=== PATIENT | male | born 2000 | race Caucasian/White ===

== ENCOUNTER 2024-01-30 10:25 | Emergency (ER) | payer OTHER, SELFPAY ==
[2024-01-30 10:28] VITALS: BP 125/83
[2024-01-30 10:58] VITALS: BMI 28.4
--- NOTE | 2024-01-30 11:32 | ED.GENMED ---
History of Present Illness
General
Chief Complaint: Chest Pain
Source: patient
Exam Limitations: none
Time Seen by Provider: 01/30/24 10:57
Nursing documentation reviewed up to this point in time: agreed with
History of Present Illness
History of Present Illness:
23 yo male w h/o Anxiety/depression on Effexor 150 + 37.5 mg presents stating he was sitting at work, just got a promotion at his back 2 weeks ago, and suddenly felt chest tightness, felt 'overwhelmed.' No associated symptoms such as sweating,
dizziness, weakness, radiation of pain, SOB.
Past History
Past History
ED Past Medical History: Psychiatric (anxiety/depression)
ED Past Surgical History: None
Review of Systems
Review of Systems
Allergies reviewed?: Yes
All Other Systems: ROS reviewed and negative except as documented in HPI and ROS
Cardiac: Reports chest pain; Denies diaphoresis or palpitations
ABD/GI: Denies abdominal pain or nausea
Neurological: Reports no symptoms
Psychiatric: Reports depression (over breakup) and anxiety (over new job position)
Phy Exam
Physical Exam
Physical Exam:
GENERAL: No acute distress. A&Ox3.
CONSTITUTIONAL: Afebrile.
EYES: clear, tearful
RESPIRATORY: Regular respirations, nonlabored, lungs clear.
CARDIOVASCULAR: Regular rate and rhythm, no murmurs, no rubs.
GI: Soft, nontender
MUSCULOSKELETAL: Moves with ease. Well perfused.
SKIN: Warm, dry, pink
PSYCH: Depressed, tearful mood and affect. Well kept, interactive and appropriate
NEUROLOGIC: Awake, alert and oriented. No focal neurological deficits
Scores
Heart Score for Chest Pain Patients
STEMI patient?: Not applicable
Course
Orders/Labs/Results
Orders:
Orders
01/30/24 10:25
EKG [Electrocardiogram (*1)] Urgent
Reason for Study: Chest Pain
01/30/24 10:26
EKG- Treatment ONCE
Vital Signs
Initial and Last Documented VS:
Initial Vital Signs
Temp Pulse Resp BP Pulse Ox
99 F 83 18 125/83 98
01/30/24 10:28 01/30/24 10:28 01/30/24 10:28 01/30/24 10:28 01/30/24 10:28
Last Documented Vital Signs
Temp Pulse Resp BP Pulse Ox
99 F 87 21 102/73 97
01/30/24 10:28 01/30/24 12:00 01/30/24 12:00 01/30/24 12:00 01/30/24 11:45
MDM/Problems Addressed
Differential Diagnosis Includes:
Anxiety, panic attack, depression
MDM/Problems Addressed:
23 yo male w h/o Anxiety/depression on Effexor 150 + 37.5 mg presents stating he was sitting at work, just got a promotion at his back 2 weeks ago, and suddenly felt chest tightness, felt 'overwhelmed.' No associated symptoms such as sweating,
dizziness, weakness, radiation of pain, SOB.
In further discussion he tells me his girlfriend of 3 years broke up with him 1.5 months ago and 'my whole world changed.' Tearful. Admits to hx of anxiety but 'never this much.'
States has strong social support (parents, friends)
Mom arrives and they hug and he cries.
Plan: Give note for 2 days off work.
EKG normal.
No indication for lab work.
Feeling 'a little' better.
Pt admits he feels suicidal, does not have a plan.
Case discussed with Darrel in Crisis and pt sent to Crisis for evaluation.
Mom is attempting to contact pt's Psychiatrist
*EKG
EKG Intrepretation Date: 01/30/24
EKG Intrepretation Time: 11:32
Interpretation: normal
Comparison EKG: no comparison EKG present
Rate: normal
Rhythm: sinus
Williams: normal axis
Interval: normal interval
QRS Pattern: normal QRS
Ischemia: no ischemia
*Critical Care Note
Total Time (30-74mins, 75-104mins- exclusive of procedures): Not Applicable
ED Attending Note
-
Portions of this chart may have been created with voice recognition software.� Occasional wrong word or��sound alike� substitutions may have occurred due to the inherent limitations of voice recognition software.
Discharge Plan
Departure
Patient Disposition: Home (Routine Discharge)
Date of Disposition: 01/30/24
Time of Disposition: 11:47
Patient with high blood pressure during this ER visit?: No
Condition: Fair
Discharge Problem:
Depression, Stress at work, Atypical chest pain
Instructions: Chest Pain That Is Not Caused by the Heart (DC), Tips for How to Help Your Mood, Stress, Depression, Adult ED
Referrals:
Cristian Churchill MD [Family Provider] - As needed
Stand Alone Forms: Return to Work
Activity Restrictions/Additional Instructions:
As we discussed, your EKG is normal.
Take it easy the next 2 days. Return to work on 02/01.
Interventions
Interventions:
*Risk Screen - Suicide Last Done: 01/30/24 10:28
*Neglect/Abuse Screening Last Done: 01/30/24 10:28
*ED COVID-19 Vaccine History Last Done: 01/30/24 10:28
*Nursing Disposition Last Done: 01/30/24 12:26
ED- Cardiac Assessment Last Done: 01/30/24 10:58
Discharge Date and Time
Discharge Date/Time: 01/30/24 12:28
Print Language: CAMEROONIAN
[2024-01-30 12:00] VITALS: BP 102/73
== END 2024-01-30 12:28 | disposition home or self-care (01) ==
LOC: EMR 10:25
PROVIDERS: EMERGENCY PHYSICIAN Emergency Medicine; FAMILY PHYSICIAN Family Medicine
DX: R07.89 Other chest pain (principal); R45.851 Suicidal ideations; Z56.6 Other physical and mental strain related to work; F32.A Depression, unspecified; F41.9 Anxiety disorder, unspecified
CPT/HCPCS: 99283; 93005